=== PATIENT | female | born 1965 | race Caucasian/White ===

== ENCOUNTER 2016-09-22 11:37 | Inpatient (IN) | payer BC, OTHER ==
[~2016-09-22] VITALS: Ht 157.5 cm; Wt 100.6 kg
[2016-11-17] MEDS ORDERED: BENICAR HCT 12.1 TAB PO (14:59)
[2016-11-17] MEDS ORDERED: NAPROSYN500 MG PO (15:00)
[2016-11-17] MEDS ORDERED: PROTONIX 40MG T40 MG PO (15:00)
[2016-11-17] MEDS ORDERED: LIPITOR20 MG PO (15:00)
[2016-11-17] MEDS ORDERED: GLUCOSAMINE & C1 CA1 PO (15:01)
[2016-11-17] MEDS ORDERED: FLECTOR1.3% TOP (15:01)
[2016-11-17] MEDS ORDERED: FISH OIL 500 M1 EAC1 PO (15:01)
[2016-11-18] VITALS (11 sets, daily range): BP systolic 101–144; BP diastolic 50–85; PULSE 68–99; TEMP 70–98.9
[2016-11-19] VITALS (7 sets, daily range): BP systolic 99–133; BP diastolic 52–73; PULSE 66–97; TEMP 97.4–98.3
[2016-11-19 06:11] LABS: HEMATOCRIT 32.6 % (37.0-47.0)
[2016-11-20 05:38] VITALS: BP 99/52; PULSE 110; TEMP 98.2
[2016-11-20 07:40] VITALS: BP 110/60; PULSE 91; TEMP 97.9
[2016-11-20 12:23] VITALS: BP 132/56; PULSE 102; TEMP 98
[2016-11-20 14:58] VITALS: BP 106/60; PULSE 90; TEMP 97.8
[2016-11-20 16:59] VITALS: BP 125/65; PULSE 75; TEMP 98
[2016-11-20 20:06] VITALS: BP 106/56; PULSE 67; TEMP 98.5
[2016-11-21 00:22] VITALS: BP 84/44; PULSE 53; TEMP 98.2
[2016-11-21 04:27] VITALS: BP 96/50; PULSE 61; TEMP 99.1
[2016-11-21 08:20] VITALS: BP 124/65; PULSE 111; TEMP 98.2
[2016-11-21] MEDS ORDERED: ROXICODONE 55 MG/TAB PO (11:38)
[2016-11-21] MEDS ORDERED: NORCO 325 MG-7.1 TAB PO (11:39)
[2016-11-21] MEDS ORDERED: MOBIC 7.5MG7.5 MG PO (11:39)
[2016-11-21] MEDS ORDERED: ASPIRIN 32325 MG/TAB PO (11:40)
[2016-11-21 12:33] VITALS: BP 132/78; PULSE 116; TEMP 97.7
== END 2016-11-21 12:55 | disposition home or self-care (01) | DRG 462 ==
LOC: SURG 11-18 06:39 → JCC 11-18 10:30
PROVIDERS: Orthopaedic Surgery
PROC: 0SRC0J9 Replacement of Right Knee Joint with Synthetic Substitute, Cemented, Open Approach (ICD-10-PCS; 2016-11-18)
PROC: 0SRD0J9 Replacement of Left Knee Joint with Synthetic Substitute, Cemented, Open Approach (ICD-10-PCS; principal; 2016-11-18 10:30)
DX: M17.0 Bilateral primary osteoarthritis of knee (principal)
CPT/HCPCS: A4315; A9284; C1713; C1776; J0690; J1100; J1885; J2250; J2270; J2405; J2704; J3010; J7030; J7042; J7120

== ENCOUNTER → 2016-11-11 | Outpatient (CLI) | payer BC, OTHER ==
[~2016-11-11] MED LIST: ASPIRIN 32325 MG/TAB PO; BACTRIM DS 8001 TAB PO; BENICAR HCT 12.1 TAB PO; FISH OIL 500 M1 EAC1 PO; FLECTOR1.3% TOP; GLUCOSAMINE & C1 CA1 PO; LIPITOR20 MG PO; MOBIC 7.5MG7.5 MG PO; NAPROSYN500 MG PO; NORCO 325 MG-7.1 TAB PO; OMNICEF 300MG300 MG PO; PROTONIX 40MG T40 MG PO; ROXICODONE 55 MG/TAB PO
[2016-11-11 12:28] LABS: HIV 1/2 Antibodies Non-Reactive; HIV-1p24 Antigen Non-Reactive
== END ==
LOC: COL.LAB 11:13
PROVIDERS: Orthopaedic Surgery
DX: Z01.812 Encounter for preprocedural laboratory examination (principal); M25.862 Other specified joint disorders, left knee; M25.861 Other specified joint disorders, right knee

== ENCOUNTER 2016-11-16 14:46 | Outpatient (RCR) | payer BC, OTHER ==
[2016-11-17] MEDS ORDERED: BENICAR HCT 12.1 TAB PO (14:59)
[2016-11-17] MEDS ORDERED: LIPITOR20 MG PO (15:00)
[2016-11-17] MEDS ORDERED: NAPROSYN500 MG PO (15:00)
[2016-11-17] MEDS ORDERED: PROTONIX 40MG T40 MG PO (15:00)
[2016-11-17] MEDS ORDERED: FLECTOR1.3% TOP (15:01)
[2016-11-17] MEDS ORDERED: FISH OIL 500 M1 EAC1 PO (15:01)
[2016-11-17] MEDS ORDERED: GLUCOSAMINE & C1 CA1 PO (15:01)
== END 2016-11-16 16:43 | disposition home or self-care (01) ==
LOC: WSPT 14:46
DX: M17.0 Bilateral primary osteoarthritis of knee (principal)

== ENCOUNTER 2017-01-04 12:25 | Emergency (ER) | payer BC, OTHER ==
[~2017-01-04] VITALS: Ht 157.5 cm; Wt 100.0 kg
[~2017-01-04 12:25] MED LIST changes: -BACTRIM DS 8001 TAB PO; -OMNICEF 300MG300 MG PO
[2017-01-04 12:26] VITALS: TEMP 98.3
[2017-01-04] MEDS ORDERED: BACTRIM DS 8001 TAB PO (12:33)
[2017-01-04 13:14] LABS: BASO # 0.1 (0.0-0.2); BASO % 0.5 % (0.0-2.0); EOS % 0.1 % (0-4.0); GRAN % 84.1 % (42.2-75.2); HEMATOCRIT 38.4 % (37.0-47.0); HEMOGLOBIN 12.6 g/dl (12.5-16.0); LYMPH # 1.1 (1.2-3.4); MEAN CELL VOLUME 89 fl (80.0-100.0); MEAN CORPUSCULAR HEMOGLOBIN 29 pg (27.0-31.0); MEAN CORPUSCULAR HGB CONC 33 g/dl (33.0-37.0); MEAN PLATELET VOLUME 10.3 fl (7.4-10.4); MONO # 0.9 (0.1-0.6); MONO % 6.7 % (1.7-9.3); PLATELET COUNT 224 K/mm3 (130-400); RED BLOOD COUNT 4.33 M/mm3 (4.10-5.30); WHITE BLOOD COUNT 13.1 K/mm3 (4.8-10.8)
[2017-01-04 13:27] LABS: ALBUMIN 4.2 gm/dL (3.5-5.0); BILIRUBIN,TOTAL 0.6 mg/dL (0.0-1.0); C-REACTIVE PROTEIN 3.5 mg/dL (0.0-0.9); CALCIUM 9.2 mg/dL (8.4-10.2); CREATININE, serum 0.81 mg/dL (0.52-1.25); POTASSIUM 3.8 mmol/L (3.4-5.0); TOTAL PROTEIN 7.6 gm/dL (6.4-8.2)
[2017-01-04 13:50] LABS: PH 6 (5-8); SQUAMOUS EPITHELIAL 0-2 /hpf; URINE APPEARANCE Hazy; URINE BACTERIA Rare /hpf; URINE BILIRUBIN Negative (NEGATIVE); URINE BLOOD 1+ (NEGATIVE); URINE COLOR Yellow; URINE GLUCOSE Negative (NEGATIVE); URINE KETONE Negative (NEGATIVE); URINE RBC 0-2 /hpf; URINE UROBILINOGEN Negative (NEGATIVE); URINE WBC >50 /hpf
[2017-01-04] MEDS ORDERED: OMNICEF 300MG300 MG PO (14:15)
[2017-01-04 15:25] VITALS: BP 107/66; PULSE 95
== END 2017-01-04 15:25 | disposition home or self-care (01) ==
LOC: COL.ER 12:25
PROVIDERS: Emergency Medicine
DX: N12 Tubulo-interstitial nephritis, not specified as acute or chronic (principal); N39.0 Urinary tract infection, site not specified; B96.20 Unspecified Escherichia coli [E. coli] as the cause of diseases classified elsewhere; I10 Essential (primary) hypertension; M19.90 Unspecified osteoarthritis, unspecified site; Z96.653 Presence of artificial knee joint, bilateral
CPT/HCPCS: J0696; J7030

== ENCOUNTER 2017-02-18 08:45 | Outpatient (RCR) | payer BC, OTHER ==
[~2017-02-18 08:45] MED LIST changes: +BACTRIM DS 8001 TAB PO; +OMNICEF 300MG300 MG PO
== END 2017-02-21 | disposition home or self-care (01) ==
LOC: WSPT
DX: Z01.818 Encounter for other preprocedural examination (principal); M17.0 Bilateral primary osteoarthritis of knee

== ENCOUNTER 2017-03-04 11:30 | Outpatient (RCR) | payer BC, OTHER | END 2017-03-11 13:54 | disposition still patient (30) | LOC: WSPT 11:30 | DX: Z96.653 Presence of artificial knee joint, bilateral (principal) ==

== ENCOUNTER → 2017-04-26 | Outpatient (CLI) | payer BC, OTHER | LOC: MC.RAD 07:17 | DX: Z12.31 Encounter for screening mammogram for malignant neoplasm of breast (principal) ==

== ENCOUNTER → 2018-05-10 | Outpatient (CLI) | payer OTHER | LOC: MC.RAD 07:10 | DX: Z12.31 Encounter for screening mammogram for malignant neoplasm of breast (principal) ==

== ENCOUNTER → 2019-06-01 | Outpatient (CLI) | payer OTHER | LOC: MC.RAD 07:28 | DX: Z12.31 Encounter for screening mammogram for malignant neoplasm of breast (principal) ==

== ENCOUNTER → 2020-06-04 | Outpatient (CLI) | payer OTHER | LOC: MC.RAD 07:26 | DX: Z12.31 Encounter for screening mammogram for malignant neoplasm of breast (principal) ==

== ENCOUNTER → 2021-06-16 | Outpatient (CLI) | payer OTHER | LOC: MC.RAD 07:24 | DX: Z12.31 Encounter for screening mammogram for malignant neoplasm of breast (principal) ==

== ENCOUNTER → 2023-07-19 | Outpatient (CLI) | payer OTHER | LOC: CANSCHCLI → MC.RAD 06:56 | DX: Z12.31 Encounter for screening mammogram for malignant neoplasm of breast (principal) ==

== ENCOUNTER → 2024-05-19 | Outpatient (CLI) | payer OTHER | LOC: MC.RAD 12:40 | DX: Z12.31 Encounter for screening mammogram for malignant neoplasm of breast (principal) ==